=== PATIENT | male | born 1965 | race Caucasian/White ===

== ENCOUNTER 2018-10-05 00:26 | Emergency (ER) | payer OTHER ==
--- NOTE | 2018-10-05 00:42 | ERPHSYRPT ---
- History of Present Illness Time Seen by Provider: 10/05/18 00:42 Historian: patient, family Exam Limitations: no limitations Physician History: 53 y/o white male presents with sharp chest pain that is sudden onset at rest and located left of midline. occurred approx 1 hour ago and radiated down left shoulder and arm. no soa. no abd pain. pts primary doctors are at [facility]. pt states he is not on any medications at all. has nkda. cp very mild on arrival but not completely gone. no asa or ntg [employer]. Timing/Duration: hour(s) (1) Activities at Onset: rest Quality: sharpness Location: other (left of sternum) Chest Pain Radiation: arm (left shoulder and arm) Severity of Pain-Max: mild Severity of Pain-Current: mild Modifying Factors: Improves With: other (resolving on its own) Associated Symptoms: No nausea, No vomiting, No palpitations, No heartburn, No abdominal pain, No shortness of breath, No cough, No hurts to breathe, No diaphoresis, No chills, No fever, No fatigue, No weakness, No swelling/lump in chest, No syncope, No rash, No headache, No dizziness, No edema, No back pain Prior Chest Pain/Cardiac Workup: no prior chest pain Nitro Today/Relief: no nitro taken today Aspirin Treatment Today: no aspirin today Allergies/Adverse Reactions: No Known Drug Allergies Allergy (Verified 10/05/18 00:46) Home Medications: No Reportable Medications [No Reported Medications] 10/05/18 [History] - Review of Systems Constitutional: No Symptoms, No Fever Eyes: No Symptoms Ears, Nose, & Throat: No Symptoms, No Ear Pain, No Ear Discharge Respiratory: No Symptoms, No Cough, No Dyspnea, No Stridor, No Wheezing Cardiac: Chest Pain, No Palpitations, No Syncope Abdominal/Gastrointestinal: No Symptoms, No Abdominal Pain, No Nausea, No Vomiting, No Diarrhea Genitourinary Symptoms: No Symptoms, No Dysuria, No Frequency, No Hematuria Musculoskeletal: No Symptoms, No Back Pain, No Fall, No Injury Skin: No Symptoms Neurological: No Symptoms Psychological: No Symptoms Endocrine: No Symptoms Hematologic/Lymphatic: No Symptoms Immunological/Allergic: No Symptoms All Other Systems: Reviewed and Negative - Past Medical History Neurological History: No Pertinent History Cardiac History: No Pertinent History Respiratory History: No Pertinent History Endocrine Medical History: Diabetes Type II Musculoskeletal History: Arthritis GI Medical History: No Pertinent History History: No Pertinent History - Past Surgical History Neuro Surgical History: No Pertinent History Cardiac: No Pertinent History Respiratory: No Pertinent History Gastrointestinal: No Pertinent History Genitourinary: No Pertinent History - Nursing Vital Signs Nursing Vital Signs: Initial Vital Signs Temperature 98.6 F 10/05/18 00:30 Pulse Rate 90 10/05/18 00:30 Respiratory Rate 20 10/05/18 00:30 Blood Pressure 178/93 10/05/18 00:30 O2 Sat by Pulse Oximetry 96 10/05/18 00:30 Pain Scale Pain Intensity 4 - Physical Exam General Appearance: no apparent distress, alert, anxiety Eye Exam: PERRL/EOMI, eyes nml inspection Ears, Nose, Throat Exam: normal ENT inspection, TMs normal, moist mucous membranes Neck Exam: normal inspection, non-tender, supple, full range of motion Respiratory Exam: normal breath sounds, chest tenderness (mild and improving), lungs clear, airway intact, No respiratory distress, No accessory muscle use, No rhonchi, No wheezing, No stridor Cardiovascular Exam: regular rate/rhythm, normal heart sounds, normal peripheral pulses Gastrointestinal/Abdomen Exam: soft, normal bowel sounds, No tenderness, No guarding, No rebound Rectal Exam: not done Back Exam: normal inspection, normal range of motion, No CVA tenderness, No vertebral tenderness Extremity Exam: normal inspection, normal range of motion, pelvis stable Neurologic Exam: alert, oriented x 3, cooperative, 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 Skin Exam: normal color, warm, dry Lymphatic Exam: adenopathy SpO2 Interpretation: normal Oxygen Delivery: Room Air - Course Nursing assessment & vital signs reviewed: Yes EKG Interpreted by Me: RATE (83), Sinus Rhythm, NORMAL AXIS, NORMAL INTERVALS, NORMAL QRS, NORMAL ST-T Ordered Tests: Active Orders 24 hr Category Date Time 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 Care 10/05/18 00:51 Active EKG-ER Only STAT Care 10/05/18 00:50 Active IV Insertion STAT Care 10/05/18 00:50 Active CHEST 1 VIEW (PORTABLE) Stat Exams 10/05/18 00:51 Taken CBC W DIFF Stat Lab 10/05/18 00:50 Completed CMP Stat Lab 10/05/18 00:50 Completed D-DIMER QUANTITATION Stat Lab 10/05/18 00:50 Completed NT PRO BNP Stat Lab 10/05/18 00:50 Completed PROTIME WITH INR Stat Lab 10/05/18 00:50 Completed TROPONIN Q3H Lab 10/05/18 00:50 Completed TROPONIN Q3H Lab 10/05/18 04:00 Ordered TROPONIN Q3H Lab 10/05/18 07:00 Ordered TROPONIN Q3H Lab 10/05/18 10:00 Ordered TROPONIN Q3H Lab 10/05/18 13:00 Ordered Medication Summary Discontinued Medications Generic Name Dose Route Start Last Admin Trade Name Maura PRN Reason Stop Dose Admin Aspirin 324 mg 10/05/18 00:50 10/05/18 01:03 Baby Aspirin 81 Mg Chew PO 10/05/18 00:51 324 mg STAT ONE Administration Aspirin Confirm 10/05/18 01:11 Baby Aspirin 81 Mg Chew Administered 10/05/18 01:12 Dose 324 mg .ROUTE .STK-MED ONE Morphine Sulfate 2 mg 10/05/18 01:03 10/05/18 01:13 Morphine Sulfate 2 Mg Inj IV 10/05/18 01:04 2 mg STAT ONE Administration Morphine Sulfate Confirm 10/05/18 01:11 Morphine Sulfate 2 Mg Inj Administered 10/05/18 01:12 Dose 2 mg .ROUTE .STK-MED ONE Lab/Rad Data: Laboratory Result Diagrams 10/05/18 00:50 10/05/18 00:50 Laboratory Results 10/05/18 10/05/18 10/05/18 Range/Units 00:50 00:50 00:50 WBC (4.0-10.5) K/mm3 RBC (4.1-5.6) M/mm3 Hgb (12.5-18.0) gm/dl Hct (42-50) % MCV (78-100) fl MCH (26-32) pg MCHC (32-36) g/dl RDW (11.5-14.0) % Plt Count (150-450) K/mm3 MPV (6-9.5) fl Gran % (36.0-66.0) % Eos # (Auto) (0-0.5) Absolute Lymphs (auto) (1.0-4.6) Absolute Monos (auto) (0.0-1.3) Lymphocytes % (24.0-44.0) % Monocytes % (0.0-12.0) % Eosinophils % (0.00-5.0) % Basophils % (0.0-0.4) % Absolute Granulocytes (1.4-6.9) Basophils # (0-0.4) PT 11.1 (8.83-12.87) SECONDS INR 0.95 (0.8-3.0) D-Dimer 233 (215-500) ng/mL Sodium 140 (137-145) mmol/L Potassium 3.7 (3.5-5.1) mmol/L Chloride 102 (98-107) mmol/L Carbon Dioxide 28 (22-30) mmol/L Anion Gap 13.6 (5-15) MEQ/L BUN 14 (9-20) mg/dL Creatinine 0.84 (0.66-1.25) mg/dL Estimated GFR > 60.0 ML/MIN Glucose 123 H (74-106) mg/dL Calcium 9.3 (8.4-10.2) mg/dL Total Bilirubin 0.30 (0.2-1.3) mg/dL AST 27 (17-59) U/L ALT 38 (0-50) U/L Alkaline Phosphatase 60 (38-126) U/L Troponin I < 0.012 (0.000-0.034) ng/mL NT-Pro-B Natriuret Pep < 11.1 (0-900) pg/mL Serum Total Protein 7.3 (6.3-8.2) g/dL Albumin 4.2 (3.5-5.0) g/dL 10/05/18 Range/Units 00:50 WBC 9.0 (4.0-10.5) K/mm3 RBC 5.27 (4.1-5.6) M/mm3 Hgb 15.5 (12.5-18.0) gm/dl Hct 47.1 (42-50) % MCV 89.4 (78-100) fl MCH 29.4 (26-32) pg MCHC 32.9 (32-36) g/dl RDW 12.8 (11.5-14.0) % Plt Count 229 (150-450) K/mm3 MPV 11.3 H (6-9.5) fl Gran % 49.7 (36.0-66.0) % Eos # (Auto) 0.26 (0-0.5) Absolute Lymphs (auto) 3.57 (1.0-4.6) Absolute Monos (auto) 0.66 (0.0-1.3) Lymphocytes % 39.7 (24.0-44.0) % Monocytes % 7.3 (0.0-12.0) % Eosinophils % 2.9 (0.00-5.0) % Basophils % 0.4 (0.0-0.4) % Absolute Granulocytes 4.46 (1.4-6.9) Basophils # 0.04 (0-0.4) PT (8.83-12.87) SECONDS INR (0.8-3.0) D-Dimer (215-500) ng/mL Sodium (137-145) mmol/L Potassium (3.5-5.1) mmol/L Chloride (98-107) mmol/L Carbon Dioxide (22-30) mmol/L Anion Gap (5-15) MEQ/L BUN (9-20) mg/dL Creatinine (0.66-1.25) mg/dL Estimated GFR ML/MIN Glucose (74-106) mg/dL Calcium (8.4-10.2) mg/dL Total Bilirubin (0.2-1.3) mg/dL AST (17-59) U/L ALT (0-50) U/L Alkaline Phosphatase (38-126) U/L Troponin I (0.000-0.034) ng/mL NT-Pro-B Natriuret Pep (0-900) pg/mL Serum Total Protein (6.3-8.2) g/dL Albumin (3.5-5.0) g/dL - Progress Progress: improved, re-examined Air Movement: good Progress Note: 10/05/18 02:00 cxr-no acute process. cardiomegaly. Blood Culture(s) Obtained: No Antibiotics given: No Counseled pt/family regarding: lab results, diagnosis, need for follow-up, rad results - Departure Time of Disposition: 02:01 Departure Disposition: Home Clinical Impression: Chest pain, Hypertension Condition: Stable Critical Care Time: No Referrals: DOCTOR,NO FAMILY [NON-STAFF PHY W/O PRIVILEGES] - Additional Instructions: follow up with primary doctor for further management of your high blood pressure and other scheduled cardiac workup
[2018-10-05] MEDS: BABY ASPIRIN 81 MG CHEW PO ONE (01:03)
[2018-10-05 01:09] LABS: INR 0.95 (0.8-3.0)
[2018-10-05] MEDS ORDERED: MORPHINE SULFATE 2 MG INJ ONE (01:11)
[2018-10-05] MEDS ORDERED: BABY ASPIRIN 81 MG CHEW ONE (01:11)
[2018-10-05] MEDS: MORPHINE SULFATE 2 MG INJ IV ONE (01:13)
[2018-10-05 01:19] LABS: BASOPHIL % 0.4 % (0.0-0.4); Basophil (Absolute #) 0.04 (0-0.4); Eosinophil % 2.9 % (0.00-5.0); Eosinophil (Absolute #) 0.26 (0-0.5); Granulocyte Absolute (ANC) 4.46 (1.4-6.9); Granulocytes % 49.7 % (36.0-66.0); Hematocrit 47.1 % (42-50); Hemoglobin 15.5 gm/dl (12.5-18.0); Lymphocyte (Absolute #) 3.57 (1.0-4.6); Lymphocytes % 39.7 % (24.0-44.0); Mean Cell Volume 89.4 fl (78-100); Mean Corpuscular Hemoglobin 29.4 pg (26-32); Mean Corpuscular Hgb Concent. 32.9 g/dl (32-36); Mean Platelet Volume 11.3 fl (6-9.5); Monocyte (Absolute #) 0.66 (0.0-1.3); Monocytes % 7.3 % (0.0-12.0); Platelet Count 229 K/mm3 (150-450); Red Blood Count 5.27 M/mm3 (4.1-5.6); Red Cell Distribution Width 12.8 % (11.5-14.0)
[2018-10-05 01:22] LABS: ALBUMIN 4.2 g/dL (3.5-5.0); ALKALINE PHOSPHATASE 60 U/L (38-126); ANION GAP 13.6 MEQ/L (5-15); BLOOD UREA NITROGEN 14 mg/dL (9-20); CHLORIDE 102 mmol/L (98-107); Calcium 9.3 mg/dL (8.4-10.2); Carbon Dioxide 28 mmol/L (22-30); Creatinine 1 0.84 mg/dL (0.66-1.25); Glucose 123 mg/dL (74-106); NT PRO BNP < 11.1 pg/mL (0-900); Potassium 3.7 mmol/L (3.5-5.1); SGOT/AST 27 U/L (17-59); SGPT/ALT 38 U/L (0-50); SODIUM 140 mmol/L (137-145); Total Protein 7.3 g/dL (6.3-8.2)
[2018-10-05 02:03] VITALS: BP 131/80; PULSE 80; O2SAT 94
--- NOTE | 2018-10-05 15:00 | XRAY ---
Exam: AP portable chest film from 10/05/2018. Comparison: AP portable chest film from 02/27/2011. Indication: 53-year-old male with chest pain. Findings: The film was obtained in a mildly lordotic projection. The heart size appears unremarkable on this AP portable chest film. There is a minimal epicardial fat pad at the left cardiophrenic angle. The remainder of the sonny and mediastinal structures appears unremarkable. The lungs are well inflated. No air space infiltrates, vascular congestion, pneumothorax, or pleural effusion is seen. There is an old healed fracture deformity of the posterior lateral aspect of the left fifth rib. Minor degenerative changes are seen within the acromioclavicular joints. No acute osseous process is seen. EKG leads are seen in place. Impression: 1. No acute cardiopulmonary disease is seen. Specifically, there is no evidence of heart failure or pulmonary edema.
== END 2018-10-05 02:20 | disposition home or self-care (01) ==
LOC: ED 00:26
DX: R07.9 Chest pain, unspecified (principal); I10 Essential (primary) hypertension
CPT/HCPCS: 36000; 36415; 71045; 80053; 83880; 84484; 85025; 85379; 85610; 93005; 93041; 96374; 99284; J2270; A9270-GY

== ENCOUNTER 2018-12-27 13:08 | Emergency (ER) | payer OTHER ==
--- NOTE | 2018-12-27 13:28 | ERPHSYRPT ---
- History of Present Illness Time Seen by Provider: 12/27/18 13:16 Historian: patient Exam Limitations: no limitations Physician History: The patient is a 53-year-old male with family complaining of chest pain. He denies shortness of breath or nausea. He has had chest pain nearly continuously since the end of September 2018. This morning he woke up without any chest pain. This is the first time in 1 week that he has not had any chest pain at all. His prior chest pain is best described as a burning sensation across his chest. Later this morning his chest pain began again. This time it increased and was different. He started to have sharp pains in addition to constant chest pain. As he was driving to ER, he took a nitroglycerin. Now his chest pain is back to the "normal" burning type of chest pain. Last Friday he was seen in the emergency room of the [facility] in [place] for the chest pain. A full workup was done at that time. They told him he did not have a heart attack. He is scheduled for a heart catheterization on 01/06/19. He does not smoke having quit 3 years ago. His past medical history is significant for atypical chest pain and anxiety. He didn't take 2 baby aspirin this morning. Timing/Duration: other (chest pain since Sep 2018.) Activities at Onset: none Quality: burning, stabbing Location: central Chest Pain Radiation: no radiation Severity of Pain-Max: moderate Severity of Pain-Current: moderate Modifying Factors: Improves With: nitroglycerin Associated Symptoms: swelling/lump in chest Prior Chest Pain/Cardiac Workup: non-cardiac, recently seen/treated Nitro Today/Relief: 0.4 mg x 1, provided at home, mild relief Aspirin Treatment Today: 81 mg x 2, provided at home Allergies/Adverse Reactions: No Known Drug Allergies Allergy (Verified 12/27/18 13:28) Home Medications: Aspirin 81 gm Chew [Baby Aspirin 81 mg Chew] 162 mg PO DAILY 12/27/18 [ History] Carvedilol 3.125 mg [Coreg 3.125 MG] 3.125 mg PO BIDWMEALS 12/27/18 [ History] Hydroxyzine HCl 50 mg/ml [Vistaril 50 MG/ML] 50 mg PO DAILY 12/27/18 [ History] Nitroglycerin 0.3 mg SL TIDPRN PRN 12/27/18 [History] Hx Tetanus, Diphtheria Vaccination/Date Given: Yes (08/2017) Hx Influenza Vaccination/Date Given: Yes (2017) Hx Pneumococcal Vaccination/Date Given: No - Review of Systems Constitutional: No Fever, No Chills Eyes: No Symptoms Ears, Nose, & Throat: No Symptoms Respiratory: No Cough, No Dyspnea Cardiac: Chest Pain Abdominal/Gastrointestinal: No Abdominal Pain, No Nausea, No Vomiting, No Diarrhea Genitourinary Symptoms: No Dysuria Musculoskeletal: No Back Pain, No Neck Pain Skin: No Rash Neurological: No Dizziness, No Focal Weakness, No Sensory Changes Psychological: No Symptoms Endocrine: No Symptoms Hematologic/Lymphatic: No Symptoms Immunological/Allergic: No Symptoms All Other Systems: Reviewed and Negative - Past Medical History Neurological History: No Pertinent History Cardiac History: No Pertinent History Respiratory History: No Pertinent History Endocrine Medical History: Diabetes Type II Musculoskeletal History: Arthritis GI Medical History: No Pertinent History History: No Pertinent History Other Medical History: pt states "prediabetes" - Past Surgical History Past Surgical History: Yes Neuro Surgical History: No Pertinent History Cardiac: No Pertinent History Respiratory: No Pertinent History Gastrointestinal: No Pertinent History Genitourinary: No Pertinent History Musculoskeletal: Orthopedic Surgery - Social History Smoking Status: Former smoker Exposure to second hand smoke: Yes Drug Use: none Patient Lives Alone: No - Nursing Vital Signs Nursing Vital Signs: Initial Vital Signs Temperature 98.4 F 12/27/18 13:09 Pulse Rate 80 12/27/18 13:09 Respiratory Rate 16 12/27/18 13:09 Blood Pressure 144/93 12/27/18 13:09 O2 Sat by Pulse Oximetry 95 12/27/18 13:09 Pain Scale Pain Intensity 4 - Physical Exam General Appearance: obese Eye Exam: PERRL/EOMI, eyes nml inspection Ears, Nose, Throat Exam: normal ENT inspection, moist mucous membranes Neck Exam: normal inspection, non-tender, supple, full range of motion Respiratory Exam: normal breath sounds, lungs clear, No respiratory distress Cardiovascular Exam: regular rate/rhythm, normal heart sounds Gastrointestinal/Abdomen Exam: soft, No tenderness, No mass Rectal Exam: not done Back Exam: normal inspection, No CVA tenderness, No vertebral tenderness Extremity Exam: normal inspection, normal range of motion Neurologic Exam: alert, oriented x 3, cooperative, normal mood/affect, sensation nml, No motor deficits Skin Exam: normal color, warm, dry SpO2 Interpretation: normal O2 Delivery: Room Air - Course EKG Interpreted by Me: RATE, Sinus Rhythm, NORMAL AXIS, NORMAL INTERVALS, NORMAL QRS, NORMAL ST-T, Other (no change in EKG from 10/05/18.) - CT Exams Chest CT Interpretation: Discussed w/radiologist (discussed with Dr Abraham), Other ( filling defects in segmental branches of RUL) Ordered Tests: Active Orders 24 hr Category Date Time Status Purchasing Expeditor STAT Care 12/27/18 13:38 Active EKG-ER Only STAT Care 12/27/18 13:37 Active IV Insertion STAT Care 12/27/18 13:37 Active Oxygen-ED Only Nasal Cannula 2 lpm Care 12/27/18 15:34 Active Pulse Oximetry (ED) STAT Care 12/27/18 13:37 Active CHEST 2 VIEWS (PA AND LAT) Stat Exams 12/27/18 13:38 Taken CHEST WITH CONTRAST [CT] Stat Exams 12/27/18 14:14 Taken CBC W DIFF Stat Lab 12/27/18 13:40 Completed CMP Stat Lab 12/27/18 13:40 Completed D-DIMER QUANTITATION Stat Lab 12/27/18 13:40 Completed PROTIME WITH INR Stat Lab 12/27/18 13:40 Completed TROPONIN Q3H Lab 12/27/18 13:40 Completed TROPONIN Q3H Lab 12/27/18 16:45 Ordered TROPONIN Q3H Lab 12/27/18 19:45 Ordered TROPONIN Q3H Lab 12/27/18 22:45 Ordered TROPONIN Q3H Lab 12/28/18 01:45 Ordered Urine Triage Profile Stat Lab 12/27/18 13:37 Uncollected Medication Summary Discontinued Medications Generic Name Dose Route Start Last Admin Trade Name Freq PRN Reason Stop Dose Admin Aspirin 162 mg 12/27/18 13:37 12/27/18 13:44 Baby Aspirin 81 Mg Chew PO 12/27/18 13:38 162 mg STAT ONE Administration Aspirin Confirm 12/27/18 13:44 Baby Aspirin 81 Mg Chew Administered 12/27/18 13:45 Dose 162 mg .ROUTE .STK-MED ONE Nitroglycerin 0.4 mg 12/27/18 13:37 12/27/18 13:45 Nitrostat 0.4 Mg (Ed) SL 12/27/18 13:38 0.4 mg STAT ONE Administration Nitroglycerin Confirm 12/27/18 13:44 Nitrostat 0.4 Mg (Ed) Administered 12/27/18 13:45 Dose 0.4 mg SL .STK-MED ONE Lab/Rad Data: Laboratory Result Diagrams 12/27/18 13:40 12/27/18 13:40 Laboratory Results 12/27/18 12/27/18 12/27/18 Range/Units 13:40 13:40 13:40 WBC (4.0-10.5) K/mm3 RBC (4.1-5.6) M/mm3 Hgb (12.5-18.0) gm/dl Hct (42-50) % MCV (78-100) fl MCH (26-32) pg MCHC (32-36) g/dl RDW (11.5-14.0) % Plt Count (150-450) K/mm3 MPV (6-9.5) fl Gran % (36.0-66.0) % Eos # (Auto) (0-0.5) Absolute Lymphs (auto) (1.0-4.6) Absolute Monos (auto) (0.0-1.3) Lymphocytes % (24.0-44.0) % Monocytes % (0.0-12.0) % Eosinophils % (0.00-5.0) % Basophils % (0.0-0.4) % Absolute Granulocytes (1.4-6.9) Basophils # (0-0.4) PT 11.5 (8.83-12.87) SECONDS INR 0.99 (0.8-3.0) D-Dimer 522 H* (215-500) ng/mL Sodium 140 (137-145) mmol/L Potassium 3.9 (3.5-5.1) mmol/L Chloride 106 (98-107) mmol/L Carbon Dioxide 26 (22-30) mmol/L Anion Gap 12.0 (5-15) MEQ/L BUN 14 (9-20) mg/dL Creatinine 0.89 (0.66-1.25) mg/dL Estimated GFR > 60.0 ML/MIN Glucose 126 H (74-106) mg/dL Calcium 9.0 (8.4-10.2) mg/dL Total Bilirubin 0.70 (0.2-1.3) mg/dL AST 28 (17-59) U/L ALT 31 (0-50) U/L Alkaline Phosphatase 60 (38-126) U/L Troponin I < 0.012 (0.000-0.034) ng/mL Serum Total Protein 7.5 (6.3-8.2) g/dL Albumin 4.0 (3.5-5.0) g/dL 12/27/18 Range/Units 13:40 WBC 5.7 (4.0-10.5) K/mm3 RBC 5.14 (4.1-5.6) M/mm3 Hgb 15.0 (12.5-18.0) gm/dl Hct 45.7 (42-50) % MCV 88.9 (78-100) fl MCH 29.2 (26-32) pg MCHC 32.8 (32-36) g/dl RDW 12.8 (11.5-14.0) % Plt Count 206 (150-450) K/mm3 MPV 10.9 H (6-9.5) fl Gran % 53.4 (36.0-66.0) % Eos # (Auto) 0.22 (0-0.5) Absolute Lymphs (auto) 1.98 (1.0-4.6) Absolute Monos (auto) 0.42 (0.0-1.3) Lymphocytes % 34.9 (24.0-44.0) % Monocytes % 7.4 (0.0-12.0) % Eosinophils % 3.9 (0.00-5.0) % Basophils % 0.4 (0.0-0.4) % Absolute Granulocytes 3.04 (1.4-6.9) Basophils # 0.02 (0-0.4) PT (8.83-12.87) SECONDS INR (0.8-3.0) D-Dimer (215-500) ng/mL Sodium (137-145) mmol/L Potassium (3.5-5.1) mmol/L Chloride (98-107) mmol/L Carbon Dioxide (22-30) mmol/L Anion Gap (5-15) MEQ/L BUN (9-20) mg/dL Creatinine (0.66-1.25) mg/dL Estimated GFR ML/MIN Glucose (74-106) mg/dL Calcium (8.4-10.2) mg/dL Total Bilirubin (0.2-1.3) mg/dL AST (17-59) U/L ALT (0-50) U/L Alkaline Phosphatase (38-126) U/L Troponin I (0.000-0.034) ng/mL Serum Total Protein (6.3-8.2) g/dL Albumin (3.5-5.0) g/dL - Progress Progress: improved Air Movement: good Progress Note: 12/27/18 15:49 called [facility] in [facility]. Counseled pt/family regarding: lab results, diagnosis, rad results - Departure Time of Disposition: 16:07 Departure Disposition: Transfer (transfer to [facility] per Dr Aldana, hospitalist) Clinical Impression: Pulmonary emboli Condition: Stable Critical Care Time: No Referrals: HOSPITAL,'S [Primary Care Provider] -
[2018-12-27] MEDS ORDERED: BABY ASPIRIN 81 MG CHEW PO ONE (13:37)
[2018-12-27] MEDS ORDERED: Nitrostat 0.4 MG (ED) SL ONE ×2 (13:37→13:44)
[2018-12-27] MEDS ORDERED: BABY ASPIRIN 81 MG CHEW ONE (13:44)
[2018-12-27 13:48] LABS: BASOPHIL % 0.4 % (0.0-0.4); Basophil (Absolute #) 0.02 (0-0.4); Eosinophil % 3.9 % (0.00-5.0); Eosinophil (Absolute #) 0.22 (0-0.5); Granulocyte Absolute (ANC) 3.04 (1.4-6.9); Granulocytes % 53.4 % (36.0-66.0); Hematocrit 45.7 % (42-50); Lymphocyte (Absolute #) 1.98 (1.0-4.6); Lymphocytes % 34.9 % (24.0-44.0); Mean Cell Volume 88.9 fl (78-100); Mean Corpuscular Hemoglobin 29.2 pg (26-32); Mean Corpuscular Hgb Concent. 32.8 g/dl (32-36); Mean Platelet Volume 10.9 fl (6-9.5); Monocyte (Absolute #) 0.42 (0.0-1.3); Monocytes % 7.4 % (0.0-12.0); Platelet Count 206 K/mm3 (150-450); Red Blood Count 5.14 M/mm3 (4.1-5.6); Red Cell Distribution Width 12.8 % (11.5-14.0); White Blood Count 5.7 K/mm3 (4.0-10.5)
[2018-12-27 14:05] LABS: INR 0.99 (0.8-3.0); PROTIME 11.5 SECONDS (8.83-12.87)
[2018-12-27 14:09] LABS: ALKALINE PHOSPHATASE 60 U/L (38-126); BLOOD UREA NITROGEN 14 mg/dL (9-20); CHLORIDE 106 mmol/L (98-107); Carbon Dioxide 26 mmol/L (22-30); Creatinine 1 0.89 mg/dL (0.66-1.25); Glucose 126 mg/dL (74-106); Potassium 3.9 mmol/L (3.5-5.1); SGOT/AST 28 U/L (17-59); SGPT/ALT 31 U/L (0-50); SODIUM 140 mmol/L (137-145); Total Protein 7.5 g/dL (6.3-8.2)
[2018-12-27] MEDS ORDERED: ENOXAPARIN SODIUM SQ STA (16:08)
[2018-12-27] MEDS ORDERED: ENOXAPARIN SODIUM SQ ONE (16:11)
[2018-12-27 17:19] VITALS: BP 121/79; PULSE 74; O2SAT 95
--- NOTE | 2018-12-27 19:13 | XRAY ---
Indication: Chest pain. Elevated d-dimer. Multiple contiguous axial images obtained through the chest using 80 cc Isovue-370 contrast and PE protocol. Comparison: None There is good opacification of the pulmonary arteries to include the lobar and segmental branches. Small nonoccluding pulmonary embolus seen in the apical posterior segmental branch of the right upper lobe. No other pulmonary embolus. Heart is not enlarged. Aorta is normal in course and caliber. No pathologic mediastinal/hilar lymphadenopathy. Distal esophageal circumferential wall thickening, possible esophagitis from reflux. Lungs are inflated without suspicious pulmonary mass, infiltrate, or effusion. Bony thorax intact with old left 5 rib fracture. Limited upper abdomen demonstrates diffuse fatty liver. Impression: 1. Right upper lobe segmental pulmonary embolus. 2. Distal esophageal wall thickening, possible esophagitis from reflux. 3. Incidental fatty liver. Comment: Preliminary interpretation was made by [facility]. No discrepancy. CTDI 23.57
--- NOTE | 2018-12-27 19:15 | XRAY ---
Indication: Chest pain. Comparison: October 05, 2018. PA/lateral chest remains clear. Heart and mediastinal structures within normal limits. Bony thorax intact again with mild degenerative changes and old left 5 rib fracture. Impression: Stable nonacute chest with chronic features.
== END 2018-12-27 17:29 | disposition short-term general hospital (02) ==
LOC: ED 13:08
DX: I26.99 Other pulmonary embolism without acute cor pulmonale (principal); Z79.899 Other long term (current) drug therapy; E11.9 Type 2 diabetes mellitus without complications; M19.90 Unspecified osteoarthritis, unspecified site
CPT/HCPCS: 36000; 36415; 71046; 71260; 80053; 84484; 85025; 85379; 85610; 93005; 93041; 96372; 99285; J1650; A9270-GY

== ENCOUNTER 2019-01-08 07:34 | Emergency (ER) | payer OTHER ==
[2019-01-08 07:56] VITALS: O2SAT 97
--- NOTE | 2019-01-08 11:25 | ERPHSYRPT ---
- History of Present Illness Source: patient Exam Limitations: no limitations Patient Subjective Stated Complaint: nose bleed starting at 0630 today. had stent and heart cath on fri. has had 3 doses of blood thinner Triage Nursing Assessment: alert and in no distress. noted slight oozing on tissue to the left nostril. states had blown his nose at 0630 this AM and it started to bleed. did have a blood clot. Physician History: Pt is a 53 y/o male with a h/p recent heart cath, with stents, and is on Brilinta and ASA. Pt was d/c from the [employer] yesterday, and took his meds once on his own. He woke up this AM with a nose bleed. Pt presented to the ED, as the bleed did not stop. Timing/Duration: abrupt onset Severity: moderate ENT Location: nose Modifying Factors: Improves With: nothing Associated Symptoms: epistaxis Allergies/Adverse Reactions: No Known Drug Allergies Allergy (Verified 12/27/18 13:28) Home Medications: Aspirin 81 gm Chew [Baby Aspirin 81 mg Chew] 162 mg PO DAILY 12/27/18 [ History] Carvedilol 3.125 mg [Coreg 3.125 MG] 3.125 mg PO BIDWMEALS 12/27/18 [ History] Hydroxyzine HCl 50 mg/ml [Vistaril 50 MG/ML] 50 mg PO DAILY 12/27/18 [ History] Nitroglycerin 0.3 mg SL TIDPRN PRN 12/27/18 [History] Hx Tetanus, Diphtheria Vaccination/Date Given: Yes (08/2017) Hx Influenza Vaccination/Date Given: Yes (2017) Hx Pneumococcal Vaccination/Date Given: No - Review of Systems Constitutional: No Fever, No Chills Eyes: No Symptoms Ears, Nose, & Throat: Epistaxis Respiratory: No Cough, No Dyspnea Cardiac: No Chest Pain, No Edema, No Syncope Abdominal/Gastrointestinal: No Abdominal Pain, No Nausea, No Vomiting, No Diarrhea Musculoskeletal: No Back Pain, No Neck Pain Neurological: No Dizziness, No Focal Weakness, No Sensory Changes - Past Medical History Pertinent Past Medical History: Yes Neurological History: No Pertinent History ENT History: No Pertinent History Cardiac History: Coronary Artery Disease, High Cholesterol Respiratory History: No Pertinent History Endocrine Medical History: Diabetes Type II Musculoskeletal History: Arthritis GI Medical History: No Pertinent History History: No Pertinent History Psycho-Social History: No Pertinent History Male Reproductive Disorders: No Pertinent History Other Medical History: pt states "prediabetes" - Past Surgical History Past Surgical History: Yes Neuro Surgical History: No Pertinent History Cardiac: No Pertinent History Respiratory: No Pertinent History Gastrointestinal: No Pertinent History Genitourinary: No Pertinent History Musculoskeletal: Orthopedic Surgery Male Surgical History: No Pertinent History Other Surgical History: LEFT HAND heart cath and stent placement 2 days ago - Social History Smoking Status: Former smoker Exposure to second hand smoke: No Drug Use: none Patient Lives Alone: No - Nursing Vital Signs Nursing Vital Signs: Initial Vital Signs Temperature 98.0 F 01/08/19 07:46 Pulse Rate 77 01/08/19 07:46 Respiratory Rate 18 01/08/19 07:46 Blood Pressure 142/59 01/08/19 07:46 O2 Sat by Pulse Oximetry 97 01/08/19 07:46 Pain Scale Pain Intensity 5 - Physical Exam General Appearance: no apparent distress, alert Eye Exam: bilateral eye: PERRL, EOMI Nasal Exam: active bleeding, dried blood Throat Exam: pharynx normal, moist mucus membranes, No tonsillar exudate Cardiovascular/Respiratory Exam: normal breath sounds, regular rate/rhythm Abdominal Exam: non-tender, soft Neurologic Exam: alert, oriented x 3, sensation nml, No motor deficits SpO2: 97 - Course Nursing assessment & vital signs reviewed: Yes - Progress Progress: improved Progress Note: 01/08/19 11:27 Pt had a rhino rocket placed in his L nare. [facility] The freight dispatcher told me to remove the rhino rocket, two hours after placement, and keep pt in the ER for another hour, and see if bleeding is back. If bleeding resolved, pt can be d/c. Otherwise, [facility] [place]. Pt is doing well. The rhinorocket did not show any fresh blood on it, and pt is able to breath and eat well. Pt is cleared for D/C. Will see patient in: office Counseled pt/family regarding: need for follow-up - Departure Time of Disposition: 11:30 Departure Disposition: Home Clinical Impression: Epistaxis Condition: Stable Critical Care Time: No Referrals: HOSPITAL,'S [Primary Care Provider] - Additional Instructions: If nose bleeds is back, come to ER. Take all your meds as ordered. You can use ocean spray nasal drops to keep nose moist.
[2019-01-08 11:54] VITALS: BP 136/63; PULSE 70
== END 2019-01-08 11:54 | disposition home or self-care (01) ==
LOC: ED 07:34
DX: R04.0 Epistaxis (principal); Z79.82 Long term (current) use of aspirin; I25.10 Atherosclerotic heart disease of native coronary artery without angina pectoris; E78.00 Pure hypercholesterolemia, unspecified; E11.9 Type 2 diabetes mellitus without complications; M19.90 Unspecified osteoarthritis, unspecified site; Z79.899 Other long term (current) drug therapy
CPT/HCPCS: 99283

== ENCOUNTER 2019-10-21 15:36 | Emergency (ER) | payer OTHER ==
[2019-10-21] MEDS ORDERED: Sodium Chloride 0.9% 1000 ML 1,000 ML IV STA (15:57)
[2019-10-21] MEDS ORDERED: BABY ASPIRIN 81 MG CHEW PO ONE (15:57)
[2019-10-21] MEDS ORDERED: Zofran 4 MG/2 ML VIAL IV ONE (15:57)
[2019-10-21 16:04] LABS: BASOPHIL % 0.4 % (0.0-0.4); Basophil (Absolute #) 0.04 (0-0.4); Eosinophil (Absolute #) 0.28 (0-0.5); Hematocrit 44.8 % (42-50); Hemoglobin 14.6 gm/dl (12.5-18.0); Lymphocyte (Absolute #) 3.16 (1.0-4.6); Lymphocytes % 33.4 % (24.0-44.0); Mean Cell Volume 88.5 fl (78-100); Mean Corpuscular Hemoglobin 28.9 pg (26-32); Mean Corpuscular Hgb Concent. 32.6 g/dl (32-36); Mean Platelet Volume 10.8 fl (6-9.5); Monocyte (Absolute #) 0.58 (0.0-1.3); Monocytes % 6.1 % (0.0-12.0); Neutrophil % 57.1 % (36.0-66.0); Platelet Count 185 K/mm3 (150-450); Red Blood Count 5.06 M/mm3 (4.1-5.6); Red Cell Distribution Width 13.2 % (11.5-14.0); White Blood Count 9.5 K/mm3 (4.0-10.5)
[2019-10-21] MEDS ORDERED: BABY ASPIRIN 81 MG CHEW ONE (16:04)
[2019-10-21] MEDS ORDERED: Sodium Chloride 0.9% 1000 ML 1,000 ML ONE (16:04)
[2019-10-21] MEDS ORDERED: Zofran 4 MG/2 ML VIAL ONE (16:04)
[2019-10-21 16:06] LABS: INR 0.99 (0.8-3.0); PROTIME 11.2 SECONDS (8.83-12.87)
--- NOTE | 2019-10-21 16:06 | ERPHSYRPT ---
- History of Present Illness Time Seen by Provider: 10/21/19 15:37 Historian: patient, family Exam Limitations: no limitations Patient Subjective Stated Complaint: PT states "I was working and had some slightly chest pain and when I checked my pulse, it felt like I was skipping a beat and I started to freak out." Triage Nursing Assessment: Pt presented alert and oriented X 3, skin pwd. pt ambulates with an upright steady gait, able to speak in complete full sentencs. PT speaking rapidly and quite a bit. Physician History: Patient is here for chest pain. Sharp, left sided. 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 No falls or trauma. History of a stent in 2018. Associated with palpitations. No SOB. medical record states h/o of PE. Patient states he in fact did not have a PE. Timing/Duration: today Activities at Onset: activity Quality: sharpness Location: substernal Chest Pain Radiation: no radiation Severity of Pain-Max: moderate Severity of Pain-Current: none Modifying Factors: Improves With: nothing Associated Symptoms: palpitations Prior Chest Pain/Cardiac Workup: cardiac cath Aspirin Treatment Today: no aspirin today Allergies/Adverse Reactions: No Known Drug Allergies Allergy (Verified 12/27/18 13:28) Home Medications: Aspirin 81 gm Chew [Baby Aspirin 81 mg Chew] 162 mg PO DAILY 12/27/18 [ History] Carvedilol 3.125 mg [Coreg 3.125 MG] 3.125 mg PO BIDWMEALS 12/27/18 [ History] Nitroglycerin 0.4 mg SL TIDPRN PRN 12/27/18 [History] Alprazolam 1 mg [Xanax 1 mg] 1 mg PO DAILY 10/21/19 [History] Rosuvastatin Calcium [Crestor] 10 mg PO DAILY 10/21/19 [History] Hx Tetanus, Diphtheria Vaccination/Date Given: Yes Hx Influenza Vaccination/Date Given: Yes Hx Pneumococcal Vaccination/Date Given: No Immunizations Up to Date: Yes - Review of Systems Constitutional: No Fever, No Chills Eyes: No Symptoms Ears, Nose, & Throat: No Symptoms Respiratory: No Cough, No Dyspnea Cardiac: Chest Pain, Palpitations, No Edema, No Syncope Abdominal/Gastrointestinal: No Abdominal Pain, No Nausea, No Vomiting, No Diarrhea Genitourinary Symptoms: No Dysuria Musculoskeletal: No Back Pain, No Neck Pain Skin: No Rash Neurological: No Dizziness, No Focal Weakness, No Sensory Changes Psychological: No Symptoms Endocrine: No Symptoms All Other Systems: Reviewed and Negative - Past Medical History Pertinent Past Medical History: Yes Neurological History: No Pertinent History ENT History: No Pertinent History Cardiac History: Coronary Artery Disease, High Cholesterol Respiratory History: No Pertinent History Endocrine Medical History: Diabetes Type II Musculoskeletal History: Arthritis GI Medical History: No Pertinent History History: No Pertinent History Psycho-Social History: No Pertinent History Male Reproductive Disorders: No Pertinent History Other Medical History: pt states "prediabetes" - Past Surgical History Past Surgical History: Yes Neuro Surgical History: No Pertinent History Cardiac: No Pertinent History Respiratory: No Pertinent History Gastrointestinal: No Pertinent History Genitourinary: No Pertinent History Musculoskeletal: Orthopedic Surgery Male Surgical History: No Pertinent History Other Surgical History: LEFT HAND heart cath and stent placement 2 days ago - Social History Smoking Status: Former smoker Exposure to second hand smoke: Yes Drug Use: none Patient Lives Alone: No - Nursing Vital Signs Nursing Vital Signs: Initial Vital Signs Temperature 97.5 F 10/21/19 15:37 Pulse Rate 100 H 10/21/19 15:37 Respiratory Rate 24 10/21/19 15:37 Blood Pressure 162/112 10/21/19 15:37 O2 Sat by Pulse Oximetry 96 10/21/19 15:37 Pain Scale Pain Intensity 0 - Physical Exam General Appearance: no apparent distress, alert Eye Exam: PERRL/EOMI, eyes nml inspection Ears, Nose, Throat Exam: normal ENT inspection, moist mucous membranes Neck Exam: normal inspection, non-tender, supple, full range of motion Respiratory Exam: normal breath sounds, lungs clear, No respiratory distress Cardiovascular Exam: regular rate/rhythm, normal heart sounds Gastrointestinal/Abdomen Exam: soft, No tenderness, No mass Back Exam: normal inspection, No CVA tenderness, No vertebral tenderness Extremity Exam: normal inspection, normal range of motion Neurologic Exam: alert, oriented x 3, cooperative, normal mood/affect, sensation nml, No motor deficits Skin Exam: normal color, warm, dry SpO2: 95 Ordered Tests: Active Orders 24 hr Category Date Time Status Staffing Mgr STAT Care 10/21/19 15:58 Active IV Insertion STAT Care 10/21/19 15:57 Active Pulse Oximetry (ED) STAT Care 10/21/19 15:57 Active CHEST 2 VIEWS (PA AND LAT) Stat Exams 10/21/19 15:57 Completed CBC W DIFF Stat Lab 10/21/19 16:00 Completed CMP Stat Lab 10/21/19 16:00 Completed D-DIMER QUANTITATION Stat Lab 10/21/19 16:00 Completed NT PRO BNP Stat Lab 10/21/19 16:00 Completed PROTIME WITH INR Stat Lab 10/21/19 16:00 Completed PTT Stat Lab 10/21/19 16:00 Completed TROPONIN Q3H Lab 10/21/19 16:00 Completed TROPONIN Q3H Lab 10/21/19 19:00 Completed Medication Summary Discontinued Medications Generic Name Dose Route Start Last Admin Trade Name Freq PRN Reason Stop Dose Admin Aspirin 324 mg 10/21/19 15:57 10/21/19 16:05 Baby Aspirin 81 Mg Chew PO 10/21/19 15:58 324 mg STAT ONE Administration Aspirin Confirm 10/21/19 16:04 Baby Aspirin 81 Mg Chew Administered 10/21/19 16:05 Dose 324 mg .ROUTE .STK-MED ONE Sodium Chloride 1,000 mls @ 999 mls/hr 10/21/19 15:57 10/21/19 17:13 Sodium Chloride 0.9% 1000 Ml IV 10/21/19 16:57 Infused .Q1H1M STA Infusion Sodium Chloride Confirm 10/21/19 16:04 Sodium Chloride 0.9% 1000 Ml Administered 10/21/19 16:05 Dose 1,000 mls @ ud .ROUTE .STK-MED ONE Ondansetron HCl 4 mg 10/21/19 15:57 10/21/19 16:05 Zofran 4 Mg/2 Ml Vial IV 10/21/19 15:58 4 mg STAT ONE Administration Ondansetron HCl Confirm 10/21/19 16:04 Zofran 4 Mg/2 Ml Vial Administered 10/21/19 16:05 Dose 4 mg .ROUTE .STK-MED ONE Lab/Rad Data: Laboratory Result Diagrams 10/21/19 16:00 10/21/19 16:00 Laboratory Results 10/21/19 10/21/19 10/21/19 Range/Units 19:00 16:00 16:00 WBC (4.0-10.5) K/mm3 RBC (4.1-5.6) M/mm3 Hgb (12.5-18.0) gm/dl Hct (42-50) % MCV (78-100) fl MCH (26-32) pg MCHC (32-36) g/dl RDW (11.5-14.0) % Plt Count (150-450) K/mm3 MPV (6-9.5) fl Gran % (36.0-66.0) % Eos # (Auto) (0-0.5) Absolute Lymphs (auto) (1.0-4.6) Absolute Monos (auto) (0.0-1.3) Lymphocytes % (24.0-44.0) % Monocytes % (0.0-12.0) % Eosinophils % (0.00-5.0) % Basophils % (0.0-0.4) % Absolute Granulocytes (1.4-6.9) Basophils # (0-0.4) PT 11.2 (8.83-12.87) SECONDS INR 0.99 (0.8-3.0) APTT 29.6 (24.1-36.1) SECONDS D-Dimer 322 (215-500) ng/mL Sodium (137-145) mmol/L Potassium (3.5-5.1) mmol/L Chloride (98-107) mmol/L Carbon Dioxide (22-30) mmol/L Anion Gap (5-15) MEQ/L BUN (9-20) mg/dL Creatinine (0.66-1.25) mg/dL Estimated GFR ML/MIN Glucose (74-106) mg/dL Calcium (8.4-10.2) mg/dL Total Bilirubin (0.2-1.3) mg/dL AST (17-59) U/L ALT (0-50) U/L Alkaline Phosphatase (38-126) U/L Troponin I < 0.012 < 0.012 (0.000-0.034) ng/mL NT-Pro-B Natriuret Pep (0-900) pg/mL Serum Total Protein (6.3-8.2) g/dL Albumin (3.5-5.0) g/dL 10/21/19 10/21/19 Range/Units 16:00 16:00 WBC 9.5 (4.0-10.5) K/mm3 RBC 5.06 (4.1-5.6) M/mm3 Hgb 14.6 (12.5-18.0) gm/dl Hct 44.8 (42-50) % MCV 88.5 (78-100) fl MCH 28.9 (26-32) pg MCHC 32.6 (32-36) g/dl RDW 13.2 (11.5-14.0) % Plt Count 185 (150-450) K/mm3 MPV 10.8 H (6-9.5) fl Gran % 57.1 (36.0-66.0) % Eos # (Auto) 0.28 (0-0.5) Absolute Lymphs (auto) 3.16 (1.0-4.6) Absolute Monos (auto) 0.58 (0.0-1.3) Lymphocytes % 33.4 (24.0-44.0) % Monocytes % 6.1 (0.0-12.0) % Eosinophils % 3.0 (0.00-5.0) % Basophils % 0.4 (0.0-0.4) % Absolute Granulocytes 5.40 (1.4-6.9) Basophils # 0.04 (0-0.4) PT (8.83-12.87) SECONDS INR (0.8-3.0) APTT (24.1-36.1) SECONDS D-Dimer (215-500) ng/mL Sodium 144 (137-145) mmol/L Potassium 3.8 (3.5-5.1) mmol/L Chloride 107 (98-107) mmol/L Carbon Dioxide 29 (22-30) mmol/L Anion Gap 12.0 (5-15) MEQ/L BUN 12 (9-20) mg/dL Creatinine 0.91 (0.66-1.25) mg/dL Estimated GFR > 60.0 ML/MIN Glucose 108 H (74-106) mg/dL Calcium 9.0 (8.4-10.2) mg/dL Total Bilirubin 0.70 (0.2-1.3) mg/dL AST 36 (17-59) U/L ALT 29 (0-50) U/L Alkaline Phosphatase 54 (38-126) U/L Troponin I (0.000-0.034) ng/mL NT-Pro-B Natriuret Pep 49.3 (0-900) pg/mL Serum Total Protein 7.9 (6.3-8.2) g/dL Albumin 4.2 (3.5-5.0) g/dL - Progress Progress: improved Air Movement: good Progress Note: 10/21/19 16:01 DDx includes STEMI, infection, PNA, PE, PTX. - we will obtain basic labs, troponin, fluids, aspirin, CXR 10/21/19 16:06 EKG- sinus rhythm, some PVCs, No STEMI, old EKG for comparison 10/21/19 19:48 3 hour troponin is negative. At this point in time, patient has been chest pain free for entire hospital stay. We will discharge patient home and follow up with PCP/operations and maintenance supervisor. - Departure Departure Disposition: Home Clinical Impression: Atypical chest pain Condition: Stable Critical Care Time: No Referrals: HOSPITAL,'S [Primary Care Provider] - Instructions: Atypical Chest Pain, Chest Pain (DC)
[2019-10-21 16:09] LABS: PTT 29.6 SECONDS (24.1-36.1)
[2019-10-21 16:20] LABS: ALBUMIN 4.2 g/dL (3.5-5.0); ALKALINE PHOSPHATASE 54 U/L (38-126); BLOOD UREA NITROGEN 12 mg/dL (9-20); CHLORIDE 107 mmol/L (98-107); Carbon Dioxide 29 mmol/L (22-30); Creatinine 1 0.91 mg/dL (0.66-1.25); Glucose 108 mg/dL (74-106); NT PRO BNP 49.3 pg/mL (0-900); Potassium 3.8 mmol/L (3.5-5.1); SGOT/AST 36 U/L (17-59); SGPT/ALT 29 U/L (0-50); SODIUM 144 mmol/L (137-145); Total Protein 7.9 g/dL (6.3-8.2)
--- NOTE | 2019-10-21 16:51 | XRAY ---
Indication: Palpitations. Comparison: December 27, 2018. PA/lateral chest remains clear. Heart is not enlarged. Bony thorax intact again with mild degenerative changes and old left 5 rib fracture. Impression: Stable nonacute chest with chronic features.
[2019-10-21 19:41] VITALS: O2SAT 95
[2019-10-21 19:50] VITALS: BP 121/69; PULSE 73
== END 2019-10-21 19:48 | disposition home or self-care (01) ==
LOC: ED 15:36
DX: R07.89 Other chest pain (principal); Z79.899 Other long term (current) drug therapy; I25.10 Atherosclerotic heart disease of native coronary artery without angina pectoris; E78.00 Pure hypercholesterolemia, unspecified; M19.90 Unspecified osteoarthritis, unspecified site
CPT/HCPCS: 36000; 36415; 71046; 80053; 83880; 84484; 85025; 85379; 85610; 85730; 93041; 94760; 96360; 96374; 99284; J2405; A9270-GY

== ENCOUNTER 2019-11-19 21:47 | Emergency (ER) | payer OTHER ==
[2019-11-19] MEDS ORDERED: MORPHINE SULFATE 4 MG INJ IV ONE (21:52)
[2019-11-19] MEDS ORDERED: BABY ASPIRIN 81 MG CHEW PO ONE (21:52)
[2019-11-19] MEDS ORDERED: Zofran 4 MG/2 ML VIAL IV ONE (21:52)
[2019-11-19 22:06] LABS: Absolute Neutrophil Ct (ANC) 3.91 (1.4-6.9); BASOPHIL % 0.4 % (0.0-0.4); Basophil (Absolute #) 0.03 (0-0.4); Eosinophil % 3.2 % (0.00-5.0); Eosinophil (Absolute #) 0.25 (0-0.5); Hematocrit 44.4 % (42-50); Hemoglobin 14.8 gm/dl (12.5-18.0); Lymphocyte (Absolute #) 2.99 (1.0-4.6); Mean Cell Volume 88.4 fl (78-100); Mean Corpuscular Hemoglobin 29.5 pg (26-32); Mean Corpuscular Hgb Concent. 33.3 g/dl (32-36); Mean Platelet Volume 10.8 fl (7.5-11.0); Monocyte (Absolute #) 0.69 (0.0-1.3); Monocytes % 8.8 % (0.0-12.0); Neutrophil % 49.6 % (36.0-66.0); Platelet Count 170 K/mm3 (150-450); Red Blood Count 5.02 M/mm3 (4.1-5.6); Red Cell Distribution Width 13.1 % (11.5-14.0); White Blood Count 7.9 K/mm3 (4.0-10.5)
[2019-11-19] MEDS ORDERED: Zofran 4 MG/2 ML VIAL ONE (22:07)
[2019-11-19] MEDS ORDERED: BABY ASPIRIN 81 MG CHEW ONE (22:07)
--- NOTE | 2019-11-19 22:10 | ERPHSYRPT ---
- History of Present Illness Time Seen by Provider: 11/19/19 21:55 Historian: patient, family Exam Limitations: no limitations Patient Subjective Stated Complaint: pt states he began having increased chest pain to lt upper chest radiating to his back while resting at home. states he felt like his heart was skipping beats and describes as a dull ache. states pain is different from his usual ches pain that is related to his reflux. Triage Nursing Assessment: pt alert and oriented, answers questions approp. pt ambulatory with steady gait noted. respirations nonlabored with lungs cta. skin warm and dry. respirations nonlabored. Physician History: 54 y/o obese white male with h/o recurrent cp, hypercholesterolemia, anxiety issues and a cardiac stent placement 12/29. pt seen in this ED 10/21/19 for same sx. pt began having a different cp this evening. cp left ant chest with radiation into back. dull ache. pt had associated diaphoresis. pt arrives to ED initially a 6/10 pain but soon, without any tx or intervention dropped to a 3/ 10. pt states his chronic cp is usually 5/10 and he now feels better than he has in a long time but still wants evaluation. pt has xanax but did not take any. pt took a single baby asa this am. pt has ntg but did not take any. Timing/Duration: today Activities at Onset: none Quality: aching (left ant chest) Chest Pain Radiation: back Severity of Pain-Max: mild Associated Symptoms: denies symptoms Prior Chest Pain/Cardiac Workup: cardiac cath Nitro Today/Relief: no nitro taken today Aspirin Treatment Today: 81 mg x 1, provided at home Allergies/Adverse Reactions: No Known Drug Allergies Allergy (Verified 11/19/19 22:06) Home Medications: Aspirin 81 gm Chew [Baby Aspirin 81 mg Chew] 81 mg PO DAILY 12/27/18 [ History] Carvedilol 3.125 mg [Coreg 3.125 MG] 3.125 mg PO BIDWMEALS 12/27/18 [ History] Nitroglycerin 0.4 mg SL TIDPRN PRN 12/27/18 [History] Alprazolam 1 mg [Xanax 1 mg] 1 mg PO DAILY 10/21/19 [History] Rosuvastatin Calcium [Crestor] 10 mg PO DAILY 10/21/19 [History] Omeprazole 40 mg PO 11/19/19 [History] Hx Tetanus, Diphtheria Vaccination/Date Given: Yes Hx Influenza Vaccination/Date Given: Yes Hx Pneumococcal Vaccination/Date Given: No Immunizations Up to Date: Yes - Review of Systems Constitutional: No Symptoms Eyes: No Symptoms Ears, Nose, & Throat: No Symptoms Respiratory: No Symptoms Cardiac: Chest Pain Abdominal/Gastrointestinal: No Symptoms Genitourinary Symptoms: No Symptoms Musculoskeletal: No Symptoms Skin: No Symptoms Neurological: No Symptoms Psychological: No Symptoms Endocrine: No Symptoms Hematologic/Lymphatic: No Symptoms Immunological/Allergic: No Symptoms All Other Systems: Reviewed and Negative - Past Medical History Pertinent Past Medical History: Yes Neurological History: No Pertinent History ENT History: No Pertinent History Cardiac History: Coronary Artery Disease, High Cholesterol Respiratory History: No Pertinent History Endocrine Medical History: No Pertinent History Musculoskeletal History: Arthritis GI Medical History: GERD History: No Pertinent History Psycho-Social History: No Pertinent History Male Reproductive Disorders: No Pertinent History Other Medical History: pt states "prediabetes" - Past Surgical History Past Surgical History: Yes Neuro Surgical History: No Pertinent History Cardiac: No Pertinent History Respiratory: No Pertinent History Gastrointestinal: No Pertinent History Genitourinary: No Pertinent History Musculoskeletal: Orthopedic Surgery Male Surgical History: No Pertinent History Other Surgical History: LEFT HAND heart cath and stent placement 2 days ago - Social History Smoking Status: Former smoker Exposure to second hand smoke: Yes Drug Use: none Patient Lives Alone: No - Nursing Vital Signs Nursing Vital Signs: Initial Vital Signs Temperature 98.5 F 11/19/19 21:48 Pulse Rate 82 11/19/19 21:48 Respiratory Rate 20 11/19/19 21:48 Blood Pressure 135/96 11/19/19 21:48 O2 Sat by Pulse Oximetry 96 11/19/19 21:48 Pain Scale Pain Intensity 5 - Physical Exam General Appearance: no apparent distress, alert, anxiety, obese Eye Exam: PERRL/EOMI, eyes nml inspection Ears, Nose, Throat Exam: normal ENT inspection, moist mucous membranes Neck Exam: normal inspection, non-tender, supple, full range of motion Respiratory Exam: normal breath sounds, lungs clear, No chest tenderness, No respiratory distress, No airway intact Cardiovascular Exam: regular rate/rhythm, normal heart sounds, normal peripheral pulses Gastrointestinal/Abdomen Exam: soft, normal bowel sounds, No tenderness Rectal Exam: not done Back Exam: normal inspection, normal range of motion, No CVA tenderness, No vertebral tenderness Extremity Exam: normal inspection, normal range of motion, pelvis stable Neurologic Exam: alert, oriented x 3, cooperative, chaser apprentice II-XII nml as tested Skin Exam: normal color, warm, dry Lymphatic Exam: No adenopathy SpO2 Interpretation: normal SpO2: 96 O2 Delivery: Room Air - Course Nursing assessment & vital signs reviewed: Yes EKG Interpreted by Me: RATE (71), Sinus Rhythm, NORMAL AXIS, NORMAL INTERVALS, NORMAL QRS, Other (occas pvcs. comparison ekg 10/21/19 no change) Ordered Tests: Active Orders 24 hr Category Date Time Status [employer] STAT Care 11/19/19 21:52 Active EKG-ER Only STAT Care 11/19/19 21:52 Active IV Insertion STAT Care 11/19/19 21:52 Active Pulse Oximetry (ED) STAT Care 11/19/19 21:52 Active CHEST 1 VIEW (PORTABLE) Stat Exams 11/19/19 21:52 Taken CBC W DIFF Stat Lab 11/19/19 22:00 Completed CMP Stat Lab 11/19/19 22:00 Completed NT PRO BNP Stat Lab 11/19/19 22:00 Completed TROPONIN Q3H Lab 11/19/19 22:00 Completed TROPONIN Q3H Lab 11/20/19 00:27 Completed TROPONIN Q3H Lab 11/20/19 04:00 Ordered TROPONIN Q3H Lab 11/20/19 07:00 Ordered TROPONIN Q3H Lab 11/20/19 10:00 Ordered Medication Summary Discontinued Medications Generic Name Dose Route Start Last Admin Trade Name Seanq PRN Reason Stop Dose Admin Aspirin 324 mg 11/19/19 21:52 11/19/19 22:09 Baby Aspirin 81 Mg Chew PO 11/19/19 21:53 324 mg STAT ONE Administration Aspirin Confirm 11/19/19 22:07 Baby Aspirin 81 Mg Chew Administered 11/19/19 22:08 Dose 324 mg .ROUTE .STK-MED ONE Morphine Sulfate 4 mg 11/19/19 21:52 Morphine Sulfate 4 Mg Inj IV 11/19/19 21:53 STAT ONE Ondansetron HCl 4 mg 11/19/19 21:52 11/19/19 22:08 Zofran 4 Mg/2 Ml Vial IV 11/19/19 21:53 4 mg STAT ONE Administration Ondansetron HCl Confirm 11/19/19 22:07 Zofran 4 Mg/2 Ml Vial Administered 11/19/19 22:08 Dose 4 mg .ROUTE .STK-MED ONE Lab/Rad Data: Laboratory Result Diagrams 11/19/19 22:00 11/19/19 22:00 Laboratory Results 11/20/19 11/19/19 11/19/19 Range/Units 00:27 22:00 22:00 WBC (4.0-10.5) K/mm3 RBC (4.1-5.6) M/mm3 Hgb (12.5-18.0) gm/dl Hct (42-50) % MCV (78-100) fl MCH (26-32) pg MCHC (32-36) g/dl RDW (11.5-14.0) % Plt Count (150-450) K/mm3 MPV (7.5-11.0) fl Gran % (36.0-66.0) % Eos # (Auto) (0-0.5) Absolute Lymphs (auto) (1.0-4.6) Absolute Monos (auto) (0.0-1.3) Lymphocytes % (24.0-44.0) % Monocytes % (0.0-12.0) % Eosinophils % (0.00-5.0) % Basophils % (0.0-0.4) % Absolute Granulocytes (1.4-6.9) Basophils # (0-0.4) Sodium 140 (137-145) mmol/L Potassium 4.1 (3.5-5.1) mmol/L Chloride 103 (98-107) mmol/L Carbon Dioxide 29 (22-30) mmol/L Anion Gap 12.6 (5-15) MEQ/L BUN 12 (9-20) mg/dL Creatinine 1.18 (0.66-1.25) mg/dL Estimated GFR > 60.0 ML/MIN Glucose 103 (74-106) mg/dL Calcium 9.1 (8.4-10.2) mg/dL Total Bilirubin 0.70 (0.2-1.3) mg/dL AST 31 (17-59) U/L ALT 29 (0-50) U/L Alkaline Phosphatase 53 (38-126) U/L Troponin I < 0.012 < 0.012 (0.000-0.034) ng/mL NT-Pro-B Natriuret Pep 23.7 (0-900) pg/mL Serum Total Protein 7.7 (6.3-8.2) g/dL Albumin 4.1 (3.5-5.0) g/dL 11/19/19 Range/Units 22:00 WBC 7.9 (4.0-10.5) K/mm3 RBC 5.02 (4.1-5.6) M/mm3 Hgb 14.8 (12.5-18.0) gm/dl Hct 44.4 (42-50) % MCV 88.4 (78-100) fl MCH 29.5 (26-32) pg MCHC 33.3 (32-36) g/dl RDW 13.1 (11.5-14.0) % Plt Count 170 (150-450) K/mm3 MPV 10.8 (7.5-11.0) fl Gran % 49.6 (36.0-66.0) % Eos # (Auto) 0.25 (0-0.5) Absolute Lymphs (auto) 2.99 (1.0-4.6) Absolute Monos (auto) 0.69 (0.0-1.3) Lymphocytes % 38.0 (24.0-44.0) % Monocytes % 8.8 (0.0-12.0) % Eosinophils % 3.2 (0.00-5.0) % Basophils % 0.4 (0.0-0.4) % Absolute Granulocytes 3.91 (1.4-6.9) Basophils # 0.03 (0-0.4) Sodium (137-145) mmol/L Potassium (3.5-5.1) mmol/L Chloride (98-107) mmol/L Carbon Dioxide (22-30) mmol/L Anion Gap (5-15) MEQ/L BUN (9-20) mg/dL Creatinine (0.66-1.25) mg/dL Estimated GFR ML/MIN Glucose (74-106) mg/dL Calcium (8.4-10.2) mg/dL Total Bilirubin (0.2-1.3) mg/dL AST (17-59) U/L ALT (0-50) U/L Alkaline Phosphatase (38-126) U/L Troponin I (0.000-0.034) ng/mL NT-Pro-B Natriuret Pep (0-900) pg/mL Serum Total Protein (6.3-8.2) g/dL Albumin (3.5-5.0) g/dL - Progress Progress: improved, re-examined Air Movement: good Progress Note: 11/19/19 23:48 cxr-no acute process 11/20/19 00:57 no cp Blood Culture(s) Obtained: No Antibiotics given: No Counseled pt/family regarding: lab results, diagnosis, need for follow-up, rad results - Departure Departure Disposition: Home Clinical Impression: Recurrent chest pain Condition: Stable Critical Care Time: No Referrals: [facility]OS[facility],'[facility] [Primary Care Provider] - Additional Instructions: take medications as prescribed. 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
[2019-11-19 22:30] LABS: ALBUMIN 4.1 g/dL (3.5-5.0); ALKALINE PHOSPHATASE 53 U/L (38-126); ANION GAP 12.6 MEQ/L (5-15); BLOOD UREA NITROGEN 12 mg/dL (9-20); CHLORIDE 103 mmol/L (98-107); Calcium 9.1 mg/dL (8.4-10.2); Carbon Dioxide 29 mmol/L (22-30); Creatinine 1 1.18 mg/dL (0.66-1.25); Glucose 103 mg/dL (74-106); NT PRO BNP 23.7 pg/mL (0-900); Potassium 4.1 mmol/L (3.5-5.1); SGOT/AST 31 U/L (17-59); SGPT/ALT 29 U/L (0-50); SODIUM 140 mmol/L (137-145); Total Protein 7.7 g/dL (6.3-8.2)
[2019-11-20 01:16] VITALS: BP 120/72; PULSE 78; O2SAT 97
--- NOTE | 2019-11-20 07:03 | XRAY ---
Indication: Recurrent chest pain. Comparison: October 21, 2019. Portable chest again demonstrates normal heart and lungs. Bony thorax intact again with mild degenerative changes and old left 5 rib fracture. No new/acute findings.
== END 2019-11-20 01:10 | disposition home or self-care (01) ==
LOC: ED 21:47
DX: R07.9 Chest pain, unspecified (principal)
CPT/HCPCS: 36000; 36415; 71045; 80053; 83880; 84484; 85025; 93005; 93041; 94760; 96374; 99284; J2405; A9270-GY

== ENCOUNTER 2024-04-07 13:30 | Emergency (ER) | payer OTHER ==
--- NOTE | 2024-04-07 13:33 | ERPHSYRPT ---
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 He has a history of recurrent chest pain, hyperlipidemia, anxiety issues and gastroesophageal reflux disease. He does have a history of cardiac stent placement in December 2018. This morning, on his way back from working and exerting himself he noticed an achiness in his neck. This subsided but then he had substernal central nonradiating chest ache and pressure. He took a Xanax as prescribed by his physician when he is concerned about anxiety causing his symptoms. This did not resolve his symptoms. In fact, he stated the pain then radiated into his left upper extremity causing achiness. He is not short of breath. He has no abdominal pain. Timing/Duration: today Activities at Onset: activity Quality: aching, pressure Location: substernal, central Chest Pain Radiation: jaw, arm Severity of Pain-Max: mild Severity of Pain-Current: mild Modifying Factors: Improves With: nothing Associated Symptoms: denies symptoms Prior Chest Pain/Cardiac Workup: cardiac cath, heart attack Nitro Today/Relief: no nitro taken today Aspirin Treatment Today: 81 mg x 4, provided by ED Allergies/Adverse Reactions: No Known Drug Allergies Allergy (Verified 11/19/19 22:06) Home Medications: Aspirin 81 gm Chew [Baby Aspirin 81 mg Chew] 81 mg PO DAILY 12/27/18 [History] Carvedilol 3.125 mg [Coreg 3.125 MG] 3.125 mg PO BIDWMEALS 12/27/18 [History] Nitroglycerin 0.4 mg SL TIDPRN PRN 12/27/18 [History] ALPRAZolam 1 MG [Xanax 1 mg] 1 mg PO DAILY 10/21/19 [History] Rosuvastatin Calcium [Crestor] 10 mg PO DAILY 10/21/19 [History] Omeprazole 40 mg PO 11/19/19 [History] Hx Tetanus, Diphtheria Vaccination/Date Given: Yes Hx Influenza Vaccination/Date Given: Yes Hx Pneumococcal Vaccination/Date Given: No Travel Risk - International Travel Have you traveled outside of the country in past 3 weeks: No - Emerging Infectious Disease Are you exhibiting symptoms associated with any current EIDs: No - Review of Systems Constitutional: No Symptoms Eyes: No Symptoms Ears, Nose, & Throat: No Symptoms Respiratory: No Symptoms Cardiac: Chest Pain Abdominal/Gastrointestinal: No Symptoms Genitourinary Symptoms: No Symptoms Musculoskeletal: No Symptoms Skin: No Symptoms Neurological: No Symptoms Psychological: No Symptoms Endocrine: No Symptoms Hematologic/Lymphatic: No Symptoms Immunological/Allergic: No Symptoms All Other Systems: Reviewed and Negative - Past Medical History Pertinent Past Medical History: Yes Neurological History: No Pertinent History ENT History: No Pertinent History Cardiac History: Coronary Artery Disease, High Cholesterol Respiratory History: No Pertinent History Endocrine Medical History: No Pertinent History Musculoskeletal History: Arthritis GI Medical History: GERD History: No Pertinent History Psycho-Social History: No Pertinent History Male Reproductive Disorders: No Pertinent History Other Medical History: pt states "prediabetes" - Past Surgical History Past Surgical History: Yes Neuro Surgical History: No Pertinent History Cardiac: No Pertinent History Respiratory: No Pertinent History Gastrointestinal: No Pertinent History Genitourinary: No Pertinent History Musculoskeletal: Orthopedic Surgery Male Surgical History: No Pertinent History Other Surgical History: LEFT HAND heart cath and stent placement 2 days ago - Social History Smoking Status: Former smoker Exposure to second hand smoke: Yes Drug Use: none Patient Lives Alone: No - Nursing Vital Signs Nursing Vital Signs: Initial Vital Signs Temperature 97.6 F 04/07/24 13:30 Pulse Rate 83 04/07/24 13:30 Respiratory Rate 20 04/07/24 13:30 Blood Pressure 142/73 04/07/24 13:30 O2 Sat by Pulse Oximetry 97 04/07/24 13:30 Pain Scale Pain Intensity 0 - Physical Exam General Appearance: no apparent distress, alert, anxiety, obese Eye Exam: PERRL/EOMI, eyes nml inspection Ears, Nose, Throat Exam: normal ENT inspection, moist mucous membranes Neck Exam: normal inspection, non-tender, supple, full range of motion Respiratory Exam: normal breath sounds, lungs clear, airway intact, No chest tenderness, No respiratory distress Cardiovascular Exam: regular rate/rhythm, normal heart sounds, normal peripheral pulses Gastrointestinal/Abdomen Exam: soft, normal bowel sounds, No tenderness Rectal Exam: not done Back Exam: normal inspection, normal range of motion, No CVA tenderness, No vertebral tenderness Extremity Exam: normal inspection, normal range of motion, pelvis stable Neurologic Exam: alert, oriented x 3, cooperative, 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 nml as tested, nml cerebellar function, nml station & gait, sensation nml Skin Exam: normal color, warm, dry Lymphatic Exam: No adenopathy SpO2 Interpretation: normal O2 Delivery: Room Air - Course Nursing assessment & vital signs reviewed: Yes EKG Interpreted by Me: RATE (84), Sinus Rhythm, NORMAL AXIS, NORMAL INTERVALS, NORMAL QRS, NORMAL ST-T, Other (No acute ischemic changes on today's twelve-lead EKG.) Ordered Tests: Active Orders 24 hr Category Date Time Status Mechanical Car Checker STAT Care 04/07/24 13:54 Active EKG-ER Only STAT Care 04/07/24 13:54 Active IV Insertion STAT Care 04/07/24 13:54 Active Pulse Oximetry (ED) STAT Care 04/07/24 13:54 Active CHEST 1 VIEW (PORTABLE) Stat Exams 04/07/24 13:54 Completed CBC W DIFF Stat Lab 04/07/24 13:57 Completed CMP Stat Lab 04/07/24 13:57 Completed D-DIMER QUANTITATIVE Stat Lab 04/07/24 13:57 Completed PROTIME WITH INR Stat Lab 04/07/24 13:57 Completed TROPONIN Q4H Lab 04/07/24 13:57 Completed TROPONIN Q4H Lab 04/07/24 18:00 Ordered TROPONIN Q4H Lab 04/07/24 22:00 Ordered Medication Summary Discontinued Medications Generic Name Dose Route Start Last Admin Trade Name Freq PRN Reason Stop Dose Admin Aspirin 324 mg 04/07/24 13:54 04/07/24 14:03 Aspirin 81 Mg Tab.Chew PO 04/07/24 13:55 324 mg STAT ONE Administration Aspirin Confirm 04/07/24 14:03 Aspirin 81 Mg Tab.Chew Administered 04/07/24 14:04 Dose 324 mg .ROUTE .STK-MED ONE Lab/Rad Data: Laboratory Result Diagrams 04/07/24 13:57 04/07/24 13:57 Laboratory Results 04/07/24 04/07/24 04/07/24 Range/Units 13:57 13:57 13:57 WBC (4.0-10.5) x10^3/uL RBC (4.1-5.6) x10^6/uL Hgb (12.5-18.0) g/dL Hct (42-50) % MCV (78-100) fL MCH (26-32) pg MCHC (32-36) g/dL RDW (11.5-14.0) % Plt Count (150-450) x10^3/uL MPV (7.5-11.0) fL Gran % (36.0-66.0) % Immature Gran % (Auto) (0.00-0.4) % Nucleat RBC Rel Count (0.00-0.1) % Eos # (Auto) (0-0.5) x10^3/uL Immature Gran # (Auto) (0.00-0.03) x10^3u/L Absolute Lymphs (auto) (1.0-4.6) x10^3/uL Absolute Monos (auto) (0.0-1.3) x10^3/uL Absolute Nucleated RBC (0.00-0.01) x10^3u/L Lymphocytes % (24.0-44.0) % Monocytes % (0.0-12.0) % Eosinophils % (0.00-5.0) % Basophils % (0.0-0.4) % Absolute Granulocytes (1.4-6.9) x10^3/uL Basophils # (0-0.4) x10^3/uL PT 10.1 (9.4-12.5) SECONDS INR 0.92 (0.8-3.0) D-Dimer 0.27 (0.0-0.50) mg/L Sodium 138 (135-145) mmol/L Potassium 4.3 (3.5-5.1) mmol/L Chloride 108 H (98-107) mmol/L Carbon Dioxide 24 (22-30) mmol/L Anion Gap 9.7 (5-15) MEQ/L BUN 13 (9-20) mg/dL Creatinine 0.91 (0.66-1.25) mg/dL Estimated GFR 98.3 ML/MIN Glucose 106 (74-106) mg/dL Calcium 8.8 (8.4-10.2) mg/dL Total Bilirubin 0.80 (0.2-1.3) mg/dL AST 41 (17-59) U/L ALT 50 (0-50) U/L Alkaline Phosphatase 61 (38-126) U/L Troponin I < 0.012 (0.000-0.033) ng/mL Serum Total Protein 7.3 (6.3-8.2) g/dL Albumin 4.0 (3.5-5.0) g/dL 04/07/24 Range/Units 13:57 WBC 5.9 (4.0-10.5) x10^3/uL RBC 5.24 (4.1-5.6) x10^6/uL Hgb 15.2 (12.5-18.0) g/dL Hct 45.6 (42-50) % MCV 87.0 (78-100) fL MCH 29.0 (26-32) pg MCHC 33.3 (32-36) g/dL RDW 12.3 (11.5-14.0) % Plt Count 196 (150-450) x10^3/uL MPV 11.0 (7.5-11.0) fL Gran % 61.2 (36.0-66.0) % Immature Gran % (Auto) 0.2 (0.00-0.4) % Nucleat RBC Rel Count 0.0 (0.00-0.1) % Eos # (Auto) 0.14 (0-0.5) x10^3/uL Immature Gran # (Auto) 0.01 (0.00-0.03) x10^3u/L Absolute Lymphs (auto) 1.65 (1.0-4.6) x10^3/uL Absolute Monos (auto) 0.45 (0.0-1.3) x10^3/uL Absolute Nucleated RBC 0.00 (0.00-0.01) x10^3u/L Lymphocytes % 27.8 (24.0-44.0) % Monocytes % 7.6 (0.0-12.0) % Eosinophils % 2.4 (0.00-5.0) % Basophils % 0.8 (0.0-0.4) % Absolute Granulocytes 3.63 (1.4-6.9) x10^3/uL Basophils # 0.05 (0-0.4) x10^3/uL PT (9.4-12.5) SECONDS INR (0.8-3.0) D-Dimer (0.0-0.50) mg/L Sodium (135-145) mmol/L Potassium (3.5-5.1) mmol/L Chloride (98-107) mmol/L Carbon Dioxide (22-30) mmol/L Anion Gap (5-15) MEQ/L BUN (9-20) mg/dL Creatinine (0.66-1.25) mg/dL Estimated GFR ML/MIN Glucose (74-106) mg/dL Calcium (8.4-10.2) mg/dL Total Bilirubin (0.2-1.3) mg/dL AST (17-59) U/L ALT (0-50) U/L Alkaline Phosphatase (38-126) U/L Troponin I (0.000-0.033) ng/mL Serum Total Protein (6.3-8.2) g/dL Albumin (3.5-5.0) g/dL - Progress Progress: improved, re-examined Air Movement: good Progress Note: 04/07/24 14:34 My medical decision making and the assignment of moderate complexity to this patient's medical issue is based on review of the patient's past medical history, review of the patient's medication list, review the patient drug allergy list, history present illness and physical findings on examination. The workup in this patient includes placement of intravenous line, twelve-lead EKG, chest x-ray, troponin level, D-dimer level, CBC, CMP. Differential diagnosis includes myocardial infarction, anxiety about health, muscle skeletal pain, pneumonia, electrolyte abnormalities, arrhythmias 04/07/24 14:49 Chest x-ray was interpreted by the radiologist and I reviewed the impression. Impression states normal heart and lungs. No new/acute findings. 04/07/24 16:27 I interpreted the patient's laboratory data results. There is no evidence of any acute, emergent medical issue on today's laboratory data results. I told the patient I wanted him to stay for a repeat troponin since he does have a cardiac history. Patient declines. He is aware there are risks involved and the risks are less if the repeat troponin is still normal. He no longer has chest pain. He states he is feeling very good. He will sign out AGAINST MEDICAL ADVICE. Blood Culture(s) Obtained: No Antibiotics given: No Counseled pt/family regarding: lab results, diagnosis, need for follow-up, rad results Medical Desision Making - Diagnostic Testing Diagnostic test were ordered, analyzed, and reviewed by me: Yes Radiological Interpretation: Reviewed by me, Teleradiologist Report - Risk of complications Low Risk: Low risk of morbidity from additional dx testing or treatment - Departure Departure Disposition: AMA Clinical Impression: Chest pain Condition: Stable Critical Care Time: No Referrals: [facility]OSPITAL,'S [Primary Care Provider] - Follow up/PCP as directed Additional Instructions: Take all your medications as prescribed. 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
[2024-04-07 13:36] VITALS: TEMP 97.6
[2024-04-07] MEDS: BABY ASPIRIN 81 MG CHEW PO ONE (14:03)
[2024-04-07] MEDS ORDERED: BABY ASPIRIN 81 MG CHEW ONE (14:03)
[2024-04-07 14:33] LABS: Absolute Neutrophil Ct (ANC) 3.63 x10^3/uL (1.4-6.9); BASOPHIL % 0.8 % (0.0-0.4); Basophil (Absolute #) 0.05 x10^3/uL (0-0.4); Eosinophil % 2.4 % (0.00-5.0); Eosinophil (Absolute #) 0.14 x10^3/uL (0-0.5); Hematocrit 45.6 % (42-50); Hemoglobin 15.2 g/dL (12.5-18.0); IMMATURE GRAN # 0.01 x10^3u/L (0.00-0.03); IMMATURE GRAN % 0.2 % (0.00-0.4); Lymphocyte (Absolute #) 1.65 x10^3/uL (1.0-4.6); Lymphocytes % 27.8 % (24.0-44.0); Mean Corpuscular Hgb Concent. 33.3 g/dL (32-36); Monocyte (Absolute #) 0.45 x10^3/uL (0.0-1.3); Monocytes % 7.6 % (0.0-12.0); Neutrophil % 61.2 % (36.0-66.0); Platelet Count 196 x10^3/uL (150-450); Red Blood Count 5.24 x10^6/uL (4.1-5.6); Red Cell Distribution Width 12.3 % (11.5-14.0); White Blood Count 5.9 x10^3/uL (4.0-10.5)
--- NOTE | 2024-04-07 14:37 | XRAY ---
Indication: Chest pain. Comparison: November 19, 2019 Portable chest again demonstrates normal heart and lungs. Bony thorax intact again with mild degenerative changes and old left 5 rib fracture. No new/acute findings.
[2024-04-07 14:48] LABS: D-DIMER QUANTITATIVE 0.27 mg/L (0.0-0.50); INR 0.92 (0.8-3.0); PROTIME 10.1 SECONDS (9.4-12.5)
[2024-04-07 14:50] LABS: ANION GAP 9.7 MEQ/L (5-15); BILIRUBIN,TOTAL 0.8 mg/dL (0.2-1.3); Calcium 8.8 mg/dL (8.4-10.2); Creatinine 1 0.91 mg/dL (0.66-1.25); EST GLOMERULAR FILTRATION RATE 98.3 ML/MIN; Potassium 4.3 mmol/L (3.5-5.1); Total Protein 7.3 g/dL (6.3-8.2)
[2024-04-07 16:25] VITALS: BP 116/73; PULSE 79; RESP 22; O2SAT 95
== END 2024-04-07 16:43 | disposition home or self-care (01) ==
LOC: ED 13:30
DX: R07.9 Chest pain, unspecified (principal); M54.2 Cervicalgia; E78.5 Hyperlipidemia, unspecified; Z79.899 Other long term (current) drug therapy
CPT/HCPCS: 36000; 36415; 71045; 80053; 84484; 85025; 85379; 85610; 93005; 93041; 94760; 99284; A9270-GY